=== PATIENT | female | born 1990 | race Caucasian/White ===

== ENCOUNTER 2022-11-03 10:06 | Emergency (ER) | payer OTHER ==
[2022-11-03 10:34] VITALS: BP 138/80; PULSE 88; RESP 18; TEMP 98.4; BMI 28.3
[2022-11-03 11:10] LABS: ALBUMIN 4.2 g/dl (3.4-5.0); BILIRUBIN,TOTAL 0.6 mg/dl (0.2-1); CALCIUM 8.8 mg/dl (8.5-10); CREATININE 0.6 mg/dl (0.55-1.3); TOT PROT 6.9 g/dl (6.4-8.2)
[2022-11-03 11:13] LABS: HEMATOCRIT 39.6 % (32.4-45.2); HEMOGLOBIN 13.5 G/dL (10.7-15.3); MCH 29.8 pg (25.7-33.7); MEAN CELL VOLUME 87.6 fl (80-96); MEAN PLT VOLUME 9.3 fl (7.5-11.1); PLATELET COUNT 271.3 10^3/uL (134-434); RBC 4.52 10^6/uL (3.60-5.2); RDW 13.9 % (11.6-15.6); WHITE BLOOD COUNT 7.1 10^3/uL (4.0-10.8)
[2022-11-03 12:31] LABS: PLATELET ESTIMATE ADEQUATE
== END 2022-11-03 13:53 | disposition home or self-care (01) ==
LOC: FER 10:06
DX: S16.1XXA Strain of muscle, fascia and tendon at neck level, initial encounter (principal); S09.90XA Unspecified injury of head, initial encounter; W18.30XA Fall on same level, unspecified, initial encounter
CPT/HCPCS: 36415; 70450-TC; 80053; 81003; 81025; 85027; 93005; 99285-25